=== PATIENT | female | born 1945 | race Caucasian/White ===

== ENCOUNTER 2020-05-19 07:18 | Outpatient (CLI) | payer MEDICARE | END 2020-05-19 23:59 | disposition home or self-care (01) | LOC: LAB 07:18 | PROVIDERS: ATTEND Surgery | DX: Z01.812 Encounter for preprocedural laboratory examination (principal); Z20.822 Contact with and (suspected) exposure to COVID-19; R19.4 Change in bowel habit; R10.31 Right lower quadrant pain; Z86.010 Personal history of colon polyps ==

== ENCOUNTER 2020-05-21 08:15 | Day surgery (SDC) | payer MEDICARE ==
[2020-05-21] MEDS ORDERED: PROPOFOL 200 MG/20 ML BOTTLE IV ONE (08:16)
[2020-05-21] MEDS ORDERED: LIDOCAINE-MPF 2% 5 ML VIAL IJ ONE (08:16)
[2020-05-21] MEDS ORDERED: IRR STERIL WATER FOR IRR 1000 ML BOTTLE IR ONE (08:16)
[2020-05-21] MEDS ORDERED: IV NORMAL SALINE 1000 ML BAG IV ONE (08:16)
[2020-05-21 08:46] LABS: BASOPHILS # (AUTO) 0.1 K/uL (0.0-8.0); BASOPHILS % (AUTO) 0.7 % (0.0-2.0); EOSINOPHILS # (AUTO) 0.2 K/uL (0.0-0.7); EOSINOPHILS % (AUTO) 2.1 % (0.0-7.0); HEMATOCRIT 41.8 % (31.2-41.9); LYMPHOCYTES # (AUTO) 2.2 K/uL (20.0-40.0); LYMPHOCYTES % (AUTO) 27.7 % (20.5-51.5); MEAN CORPUSCULAR HEMOGLOBIN 28.5 uug (24.7-32.8); MEAN CORPUSCULAR HGB CONC 34 g/dL (32.3-35.6); MEAN CORPUSCULAR VOLUME 84.9 fL (75.5-95.3); MONOCYTES # (AUTO) 0.6 K/uL (2.0-10.0); MONOCYTES % (AUTO) 7.7 % (0.0-11.0); NEUTROPHILS # (AUTO) 4.9 K/uL (1.8-8.9); NEUTROPHILS % (AUTO) 61.8 % (38.5-71.5); PLATELET COUNT (AUTO) 298 K/uL (179-408); RED BLOOD CELL COUNT(AUTO) 4.92 MIL/uL (3.63-4.92); WHITE BLOOD COUNT (AUTO) 7.9 K/uL (3.8-11.8)
[2020-05-21 08:47] LABS: *BILIRUBIN,URIN NEGATIVE (NEGATIVE); *BLOOD, URINE 2+ (NEGATIVE); *CLARITY,URINE SLIGHTLY CLOUDY (CLEAR); *COLOR,URINE YELLOW (YELLOW); *KETONES,URINE NEGATIVE (NEGATIVE); *UROBILINOGEN,URINE 0.2 E.U./dl (NORMAL); LEUKOCYTE ESTERASE ,URINE 1+ (NEGATIVE); NITRITE, URINE NEGATIVE (NEGATIVE); PH,URINE 5.5 (5.0-8.0); UGLUCOSE NEGATIVE (NEGATIVE)
[2020-05-21 08:53] LABS: CREATININE 1.2 mg/dL (0.6-1.3); POTASSIUM 3.8 mmol/L (3.5-5.1)
[2020-05-21 08:59] LABS: BILIRUBIN,TOTAL 0.5 mg/dL (0.2-1.0); TOTAL PROTEIN, SERUM 7.4 g/dL (6.4-8.2)
[2020-05-21 13:02] LABS: BACTERIA,URINE FEW /HPF (NONE SEEN); RBC,URINE 0-3 /HPF (0-3); SQUAMOUS EPITHELIAL CELL,UR FEW /HPF (NONE SEEN); URINE AMORPHOUS URATE MANY /HPF
== END 2020-05-21 12:45 | disposition home or self-care (01) ==
LOC: DS 08:15
PROVIDERS: ATTEND Surgery
DX: R10.31 Right lower quadrant pain (principal); R19.4 Change in bowel habit; K44.9 Diaphragmatic hernia without obstruction or gangrene; K64.8 Other hemorrhoids; R10.12 Left upper quadrant pain; K63.89 Other specified diseases of intestine; K31.89 Other diseases of stomach and duodenum; K21.9 Gastro-esophageal reflux disease without esophagitis; I10 Essential (primary) hypertension; J44.9 Chronic obstructive pulmonary disease, unspecified; Z79.899 Other long term (current) drug therapy; Z98.890 Other specified postprocedural states; Z86.010 Personal history of colon polyps
CPT/HCPCS: 36415; 43239; 45380; 80053; 81001; 85025; 85730; 87086; J7120; A4217; A4663; J3490; J7030

== ENCOUNTER 2020-06-30 06:28 | Outpatient (CLI) | payer MEDICARE | END 2020-06-30 23:59 | disposition home or self-care (01) | LOC: LAB 06:28 | PROVIDERS: ATTEND Surgery | DX: Z01.812 Encounter for preprocedural laboratory examination (principal); Z20.822 Contact with and (suspected) exposure to COVID-19 ==

== ENCOUNTER → 2020-07-02 | Day surgery (SDC) | payer MEDICARE ==
[~2020-07-02] MED LIST: ACETAMINOPHEN 325 MG TABLET ONE; ACETAMINOPHEN 325 MG TABLET PO ONE; BACITRACIN ZINC OINT 15 GM TUBE ONE; BUPIVACAINE/EPI PF 0.5% 10 ML VIAL ONE; FENTANYL CITRATE 100 MCG/2 ML AMPUL ONE; GABAPENTIN 300 MG CAPSULE PO SCH; GLYCOPYRROLATE 0.2 MG/ML VIAL MC ONE; IBUPROFEN 800 MG TABLET PO ONE; KETOROLAC TROMETHAMINE 30 MG INJ IM ONE; LIDOCAINE HCL 1% 20 ML VIAL ONE; NEOSTIGMINE METHYLSULFATE 10 MG/10 ML VIAL IM ONE; PROPOFOL 200 MG/20 ML BOTTLE IV ONE; ROCURONIUM BROMIDE 50 MG/5 ML VIAL ONE; SUCCINYLCHOLINE CHLORIDE 200 MG/10 ML VIAL ONE
== END | disposition home or self-care (01) ==
LOC: DS 09:24
PROVIDERS: ATTEND Surgery
DX: K80.10 Calculus of gallbladder with chronic cholecystitis without obstruction (principal); K66.0 Peritoneal adhesions (postprocedural) (postinfection); I10 Essential (primary) hypertension; E78.00 Pure hypercholesterolemia, unspecified; Z87.891 Personal history of nicotine dependence; Z98.890 Other specified postprocedural states; Z79.899 Other long term (current) drug therapy; Z90.710 Acquired absence of both cervix and uterus
CPT/HCPCS: 47562; J0330; J1885; J3010; J3490 ×4; J7120 ×2; A4663